=== PATIENT | female | born 2000 | race Caucasian/White ===

== ENCOUNTER 2021-10-01 16:25 | Emergency (ER) | payer OTHER ==
[~2021-10-01] VITALS: Ht 154.9 cm; Wt 58.1 kg
[2021-10-01 16:27] VITALS: BP 118/67
[2021-10-01] MEDS ORDERED: ACETAMINOPHEN EXTRA STRENGTH 500 MG TAB PO ONE (17:00)
[2021-10-01] MEDS ORDERED: NACL 0.9% 1,000 ML IV ONE (17:10)
--- NOTE | 2021-10-01 17:33 | NUR ---
Collected FABRIZIO specimen and Influenza specimen walked to lab. Handed to CPT Milagro.
--- NOTE | 2021-10-01 17:38 | NUR ---
21 y/o female c/o headache, throat pain, bilateral hip, knee and shoulder pain since this morning. Patient has a 8/10 pain with a aching and jabbing feeling. Patient took ibuprofen 600mg yesterday. Patient denies trauma or injury to area. Patient beingf around anyone who is sick. Medical History: overgrown hip bone, right, anxiety Medications: lorazepam, ibuprofen NKDA
--- NOTE | 2021-10-01 18:06 | NUR ---
21/F PRESENTS TO ED WITH C/O HEADACHE, SORE THROAT, BILATERAL HIP, KNEE AND SHOULDER PAIN X2 DAYS. PATIENT DENIES INJURY OR TRAUMA, STATES SHE TOOK 600MG IBUPROFEN YESTERDAY WITH NO RELIEF. PATIENT DENIES FEVERS, CHILLS OR RECENT SICK CONTACTS.
[2021-10-01] MEDS ORDERED: NAPR-54 PO (18:38)
[2021-10-01] MEDS ORDERED: PHEN177S23 PO (18:38)
[2021-10-01 19:00] VITALS: BP 104/52
--- NOTE | 2021-10-01 19:08 | NUR ---
Patient discharged with v/s stable. Written and verbal after care instructions given. Patient alert, oriented and verbalized understanding of instructions. Ambulatory with steady gait. All questions addressed prior to discharge. ID band removed. Patient advised to follow up with PMD. Rx of Naproxen and Phenol given. Opportunity to ask questions provided and answered.
--- NOTE | 2021-10-01 19:09 | NUR ---
The patient's care was reviewed and supervised by Perri Escobedo RN.
[2021-10-02] MEDS ORDERED: NAPR-54 PO (07:09)
[2021-10-02] MEDS ORDERED: PHEN177S23 PO (07:09)
== END 2021-10-01 19:00 | disposition home or self-care (01) ==
LOC: MED 16:25
DX: B34.9 Viral infection, unspecified (principal); Z20.822 Contact with and (suspected) exposure to COVID-19; Z79.899 Other long term (current) drug therapy
CPT/HCPCS: 87426; 87804; 96360; 99283; J7030

== ENCOUNTER 2021-10-15 13:30 | Emergency (ER) | payer OTHER ==
[~2021-10-15] VITALS: Ht 154.9 cm; Wt 55.8 kg
[~2021-10-15 13:30] MED LIST: NAPR-54 PO; PHEN177S23 PO
[2021-10-15 13:43] VITALS: BP 107/70
--- NOTE | 2021-10-15 14:01 | NUR ---
Dr. Sin is evaluating patient at bedside
[2021-10-15] MEDS ORDERED: KETOROLAC 30 MG/ML VIAL IM ONE (14:05)
--- NOTE | 2021-10-15 14:05 | NUR ---
21 y/o female, c/o sore throat, fevers, n&v, wheezing and body aches for 2 weeks. pt was seen here previously for s/s, new symptom of n&v. denies anyone sick at home. Patient states 5/10 low back pain. Denies chest pain, SOB, dizziness, dysuria, diarrhea, constipation, abdominal pain. Bed locked in lowest position, side rails x 1. pmh: asthma, bronchitis nka med: albuterol
--- NOTE | 2021-10-15 14:17 | NUR ---
Strep and throat culture walked to lab, handed to CPT. Ana
--- NOTE | 2021-10-15 14:35 | NUR ---
Patient states + relief to pain; 2/10 at this time. All pt needs met.
[2021-10-15] MEDS ORDERED: NACL 0.9% 1,000 ML IV ONE (14:55)
[2021-10-15 15:19] LABS: BASOPHILS % (AUTO) 0.3 % (0.0-2.0); EOSINOPHILS % (AUTO) 0.6 % (0.0-4.0); HEMATOCRIT 38.6 % (36-48); HEMOGLOBIN 12.7 g/dL (12.0-16.0); LYMPHOCYTES # (AUTO) 0.8 K/uL (2.5-16.5); LYMPHOCYTES % (AUTO) 10.5 % (20.5-51.1); MEAN CORPUSCULAR HEMOGLOBIN 29 pg (27-31); MEAN CORPUSCULAR HGB CONC 33 g/dL (33-37); MONOCYTES # (AUTO) 1.2 K/uL (0.8-1.0); NEUTROPHILS # (AUTO) 5.7 K/uL (1.8-7.7); NEUTROPHILS % (AUTO) 73.6 % (42.2-75.2); PLATELET COUNT (AUTO) 211 K/uL (140-450); RED BLOOD CELL COUNT(AUTO) 4.34 MIL/uL (4.20-5.40); RED CELL DISTRIBUTION WIDTH 13.1 % (11.6-13.7); WHITE BLOOD COUNT (AUTO) 7.8 K/uL (4.5-11.0)
[2021-10-15 15:38] LABS: ALBUMIN 3.6 g/dL (3.4-5.0); CREATININE 0.8 mg/dL (0.6-1.3); TOTAL BILIRUBIN 0.4 mg/dL (0.0-1.0)
--- NOTE | 2021-10-15 15:54 | NUR ---
Dr. Sin is reevaluating patient at bedside
[2021-10-15] MEDS ORDERED: AMOX1TAB8 PO (16:02)
[2021-10-15 16:10] VITALS: BP 106/57
--- NOTE | 2021-10-15 16:13 | NUR ---
Patient discharged with v/s stable. Written and verbal after care instructions given and explained for Pharyngitis. Work note provided. Patient alert, oriented and verbalized understanding of instructions. Ambulatory with steady gait. All questions addressed prior to discharge. ID band removed. Patient advised to follow up with PMD. Rx of Amoxicillin/Potassium Clav given. Patient educated on indication of medication including possible reaction and side effects. Opportunity to ask questions provided and answered.
== END 2021-10-15 16:13 | disposition home or self-care (01) ==
LOC: MED 13:30
DX: J06.9 Acute upper respiratory infection, unspecified (principal); B96.89 Other specified bacterial agents as the cause of diseases classified elsewhere; R11.0 Nausea; J45.909 Unspecified asthma, uncomplicated; Z79.899 Other long term (current) drug therapy
CPT/HCPCS: 36415; 80053; 81002; 81025; 83605; 85025; 87081; 96360; 96372; 99283; J1885; J7030